=== PATIENT | female | born 1975 | race Two or more races ===

== ENCOUNTER 2017-04-13 14:56 | Inpatient (IN) | payer OTHER ==
[~2017-04-13] VITALS: Ht 162.6 cm; Wt 69.9 kg
== END 2017-04-18 14:38 | disposition home or self-care (01) | DRG 743 ==
LOC: O/R 04-16 05:57 → OB/GYN 04-16 05:57 → SURG 04-16 14:54 → OB/GYN 04-16 16:52
PROVIDERS: Obstetrics & Gynecology
PROC: 0UB90ZZ Excision of Uterus, Open Approach (ICD-10-PCS; principal; 2017-04-16 11:30)
DX: D25.1 Intramural leiomyoma of uterus (principal); D25.2 Subserosal leiomyoma of uterus